=== PATIENT | male | born 1955 | race Caucasian/White ===

== ENCOUNTER 2018-03-30 10:09 | Day surgery (SDC) | payer OTHER ==
[2018-03-30] MEDS ORDERED: LR 1,000 ML IV ONE (10:40)
--- NOTE | 2018-03-30 11:31 | PDANEPAE ---
ANE History of Present Illness abdominal pain and chronic cough, here for egd ANE Past Medical History - Cardiovascular History Hx Hypertension: Yes Hx Arrhythmias: No Hx Chest Pain: No Hx Coronary Artery / Peripheral Vascular Disease: No Hx CHF / Valvular Disease: No Hx Palpitations: No - Pulmonary History Hx COPD: No Hx Asthma/Reactive Airway Disease: No Hx Recent Upper Respiratory Infection: No Hx Oxygen in Use at Home: No Hx Sleep Apnea: Yes Sleep Apnea Screening Result - Last Documented: Positive Pulmonary History Comment: MOE Positive, uses Cpap. has been having some frequent coughing spells, part of why the EGD is being done - Neurologic History Hx Cerebrovascular Accident: No Hx Seizures: No Hx Dementia: No - Endocrine History Hx Diabetes: Yes Endocrine History Comment: hypothyroid - Renal History Hx Renal Disorders: No - Liver History Hx Hepatic Disorders: No - Neurological & Psychiatric Hx Hx Neurological and Psychiatric Disorders: Yes Neurological / Psychiatric History Comment: mild depression - Cancer History Hx Cancer: No - Congenital Disorder History Hx Congenital Disorders: No - GI History Hx Gastrointestinal Disorders: Yes Gastrointestinal History Comment: GERD - Other Health History Other Health History: arthritis - prp injections in knees - Chronic Pain History Chronic Pain: Yes (knees) - Surgical History Prior Surgeries: lap band x 3 - kept twisting so was removed. knee scopes x 5. shoulder scopes for bone spurs x 3. tonsillectomy. lymph node removal in neck x 2 ANE Review of Systems Review of Systems: - Exercise capacity METS (RN): 4 METS ANE Patient History - Allergies Allergies/Adverse Reactions: No Known Allergies Allergy (Verified 03/25/18 16:59) - Home Medications Home Medications: Adult One Daily Multivit Tab 03/25/18 [Last Taken 03/25/18] Aspirin 81mg (*) 03/25/18 [Last Taken 03/25/18] Bupropion HBr 03/25/18 [Last Taken 03/28/18] Cyclobenzaprine 03/25/18 [Last Taken 03/26/18] Flonase Nasal [place] 03/25/18 [Last Taken Unknown] Gabapentin 300 mg 03/25/18 [Last Taken 03/29/18] Glucosamine HCl/Chondroitin [place] 03/25/18 [Last Taken 03/25/18] Iron 03/25/18 [Last Taken 03/24/18] Levemir 03/25/18 [Last Taken 03/29/18] Levothyroxine 03/25/18 [Last Taken 03/30/18] Losartan Potassium 03/25/18 [Last Taken 03/30/18] Metformin HCl 03/25/18 [Last Taken 03/29/18] Omeprazole 03/25/18 [Last Taken 03/29/18] Pantoprazole Sodium 03/25/18 [Last Taken 03/29/18] Potassium Cl 03/25/18 [Last Taken Unknown] Pramipexole Dihydrochloride 03/25/18 [Last Taken 03/29/18] Rosuvastatin Calcium 03/25/18 [Last Taken 03/29/18] Tramadol HCl 03/25/18 [Last Taken Unknown] Trulicity 03/25/18 [Last Taken 03/29/18] Proair Hfa 03/30/18 [Last Taken 03/30/18] - NPO status NPO Since - Liquids (Date): 03/30/18 NPO Since - Liquids (Time): 09:15 NPO Since - Solids (Date): 03/29/18 NPO Since - Solids (Time): 21:00 - Smoking Hx Smoking Status: Never smoked - Family Anes Hx Family Hx Anesthesia Complications: none ANE Labs/Vital Signs - Labs Result Diagrams: 03/30/18 11:10 - Vital Signs Blood Pressure: 117/79 Heart Rate: 80 Respiratory Rate: 16 O2 Sat (%): 92 Height: 177.8 cm Weight: 112.037 kg ANE Physical Exam - Airway Neck exam: FROM Mallampati Score: Class 3 Mouth exam: normal dental/mouth exam - Pulmonary Pulmonary: no respiratory distress, clear to auscultation - Cardiovascular Cardiovascular: regular rate and rhythym - ASA Status ASA Status: III (morbid obesity) ANE Anesthesia Plan Anesthesia Plan: GA with mask
[2018-03-30] MEDS ORDERED: fentaNYL 100 MCG/2 ML INJ IVP PRN (11:41)
[2018-03-30] MEDS ORDERED: NALOXONE HCL 0.4 MG/ML INJ IVP PRN (11:41)
[2018-03-30] MEDS ORDERED: LR 500 ML IV PRN (11:41)
[2018-03-30] MEDS ORDERED: DEXAMETHASONE 4 MG/ML VIAL IVP PRN (11:41)
[2018-03-30] MEDS ORDERED: ONDANSETRON 4 MG/2 ML VIAL IVP PRN (11:41)
--- NOTE | 2018-03-30 11:47 | PDGENHP ---
History & Physical Chief Complaint: Cough. Heartburn History of Present Illness: Chronic cough. Sore throat. Voice disturbances. Occasional solid food dysphagia. Recent ENT evaluation with vocal cord irritation. Pertinent Past, Social, Family History: PMH: obesity. GERD. PSH: failed lap- band with revision. SH: No tobacco or ETOH Relevant Physical Exam: NAD. CTA B/L. RRR without m/r/g. GI: Obese. Soft NABS. NT/ND Cardiorespiratory Assessment: ASA III. EGD with possible dilation
[2018-03-30] MEDS ORDERED: LIDOCAINE 2% 100 MG/5 ML SYR ONE (11:57)
[2018-03-30] MEDS ORDERED: fentaNYL 100 MCG/2 ML INJ ONE (11:57)
[2018-03-30] MEDS ORDERED: PROPOFOL 200 MG/20 ML VIAL ONE ×2 (11:57→12:03)
--- NOTE | 2018-03-30 12:10 | GIREPORT ---
Replaced By [facility] - Endoscopy Department Patient Name: Can Wick Procedure Date: 03/30/2018 11:44 AM Patient Type: Outpatient Attending MD/ ER Physician: Can Otero MD Procedure: Upper GI endoscopy Indications: Heartburn, Chronic cough, Chronic pharyngitis, Laryngitis Providers: Can Otero MD Medicines: Propofol per Anesthesia Complications: No immediate complications. Description of Procedure: After obtaining informed consent, the endoscope was passed under direct vision. Throughout the procedure, the patient's blood pressure, pulse, and oxygen saturations were monitored continuously. The Endoscope was intro duced through the mouth, and advanced to the second part of duodenum. The [facility] er GI endoscopy was accomplished without difficulty. The patient tolerated th e procedure well. Findings: The esophagus was normal. Evidence of a previously placed adjustable gastric banding was found in the cardia. This has been removed surgically and appears normal. The stomach was normal. The examined duodenum was normal. Estimated Blood Loss: Estimated blood loss: none. Post Op Diagnosis: - Normal esophagus. - An adjustable gastric banding was found. - Normal stomach. - Normal examined duodenum. - No specimens collected. - No evidence of esophagitis. - I suspect his cough is not related to reflux disease. Recommendation: - Continue present medications. - Return to GI office as previously scheduled. - Weight loss diet. - Patient has a contact number available for emergencies. The signs and symptoms of potential delayed complications were discussed with the pat ient. Return to normal activities tomorrow. Written discharge instructions we re provided to the patient. - Thank you for allowing me to be involved in the care of your patient. Attending Participation: I personally performed the entire procedure without the assistance of a fellow, resident or surg ical student assistant. Can Otero MD Can Otero MD 03/30/2018 12:09:46 PM This report has been signed electronicallyDavid MD Shanna Number of Addenda: 0 Note Initiated On: 03/30/2018 11:44 AM [email or web address]
[2018-03-30 12:54] VITALS: BP 101/72
--- NOTE | 2018-03-30 15:23 | POSTANESTH ---
Post Anesthetic Evaluation Cardiovascular Status: Normal, Stable Respiratory Status: Normal, Stable Level of Consciousness/Mental Status: Can Participate in Eval Pain Control: Adequate, Prn Tx Ordered Nausea/Vomiting Control: Adequate, Prn Tx Ordered Complications Possibly Related to Anesthesia: None Noted (seen prior to dc. no questions or compalints)
== END 2018-03-30 12:56 | disposition home or self-care (01) ==
LOC: FSGY 10:09
PROVIDERS: ATTEND Internal Medicine Gastroenterology
PROC: 0DJ08ZZ Inspection of Upper Intestinal Tract, Via Natural or Artificial Opening Endoscopic (ICD-10-PCS; principal; 2018-03-30 12:00)
DX: R13.10 Dysphagia, unspecified (principal); R05 Cough; K21.9 Gastro-esophageal reflux disease without esophagitis; J02.9 Acute pharyngitis, unspecified; E66.9 Obesity, unspecified; E03.9 Hypothyroidism, unspecified; G47.33 Obstructive sleep apnea (adult) (pediatric); Z68.35 Body mass index [BMI] 35.0-35.9, adult
CPT/HCPCS: J2001; J2704; J3010